=== PATIENT | female | born 1980 | race Caucasian/White ===

== ENCOUNTER 2017-07-15 07:22 | Outpatient (CLI) | payer OTHER ==
[~2017-07-15 07:22] MED LIST: FERRIC CARBOXYMALTOSE 750 MG in NORMAL SALINE 250 ML IV PRN; NORMAL SALINE 250 ML IV PRN
[2017-07-15 08:18] VITALS: BP 121/83
== END 2017-07-15 08:55 | disposition home or self-care (01) ==
LOC: II 07:22 → 5TH 07:25 → II 08:55
PROVIDERS: ATTEND Internal Medicine
PROC: 3E033GC Introduction of Other Therapeutic Substance into Peripheral Vein, Percutaneous Approach (ICD-10-PCS; principal; 2017-07-15)
DX: D50.8 Other iron deficiency anemias (principal); K90.9 Intestinal malabsorption, unspecified
CPT/HCPCS: 96365; J7050; J1439

== ENCOUNTER 2017-07-29 07:50 | Outpatient (CLI) | payer OTHER ==
[2017-07-29 09:02] VITALS: BP 111/52
== END 2017-07-29 09:15 | disposition home or self-care (01) ==
LOC: II 07:50 → 5TH 07:52 → II 09:15
PROVIDERS: ATTEND Internal Medicine
PROC: 3E033GC Introduction of Other Therapeutic Substance into Peripheral Vein, Percutaneous Approach (ICD-10-PCS; principal; 2017-07-29)
DX: D50.8 Other iron deficiency anemias (principal); K90.9 Intestinal malabsorption, unspecified
CPT/HCPCS: 96365; J7050; J1439

== ENCOUNTER 2017-08-05 10:07 | Day surgery (SDC) | payer BC, OTHER ==
[2017-07-28 11:51] LABS: HEMATOCRIT 32.6 % (36.0-47.0); HEMOGLOBIN 10.4 g/dL (12.0-15.5); MEAN CORPUSCULAR HEMOGLOBIN 23.4 pg (27.0-33.4); MEAN CORPUSCULAR HGB CONC 31.8 g/dL (32.0-36.0); MEAN CORPUSCULAR VOLUME 74 fl (80-97); PLATELET COUNT 221 10^3/uL (150-450); RED BLOOD COUNT 4.44 10^6/uL (3.72-5.28); RED CELL DISTRIBUTION WIDTH 32.9 % (11.5-14.0); WHITE BLOOD COUNT 5.2 10^3/uL (4.0-10.5)
[2017-07-28 11:54] LABS: APPEARANCE,URINE CLEAR; BILIRUBIN,URINE NEGATIVE (NEGATIVE); COLOR,URINE YELLOW; GLUCOSE, URINE NEGATIVE (NEGATIVE); KETONES,URINE NEGATIVE (NEGATIVE); LEUKOCYTE ESTERASE,URINE NEGATIVE (NEGATIVE); NITRITE,URINE NEGATIVE (NEGATIVE); PROTEIN,URINE NEGATIVE (NEGATIVE); URINE SPECIFIC GRAVITY 1.024
[2017-07-28 12:17] LABS: ALANINE AMINOTRANSFERASE 44 U/L (9-52); ALBUMIN 4.2 g/dL (3.5-5.0); ALKALINE PHOSPHATASE 69 U/L (38-126); ANION GAP 11 (5-19); ASPARTATE AMINO TRANSFERASE 26 U/L (14-36); BILIRUBIN,DIRECT 0.1 mg/dL (0.0-0.4); BILIRUBIN,TOTAL 0.3 mg/dL (0.2-1.3); BLOOD UREA NITROGEN 13 mg/dL (7-20); CALCIUM 9.1 mg/dL (8.4-10.2); CARBON DIOXIDE 24 mmol/L (22-30); CHLORIDE 104 mmol/L (98-107); GLUCOSE 84 mg/dL (75-110); POTASSIUM 4.3 mmol/L (3.6-5.0); SODIUM 139.4 mmol/L (137-145); TOTAL PROTEIN 6.8 g/dL (6.3-8.2)
--- NOTE | 2017-07-28 13:06 | RADIOLOGY REPORT (SQ) ---
EXAM DESCRIPTION: CHEST PA/LATERAL COMPLETED DATE/TIME: 07/28/2017 12:50 pm REASON FOR STUDY: PRE OP COMPARISON: None. EXAM PARAMETERS: NUMBER OF VIEWS: two views TECHNIQUE: Digital Frontal and Lateral radiographic views of the chest acquired. RADIATION DOSE: NA LIMITATIONS: none FINDINGS: LUNGS AND PLEURA: No opacities, masses or pneumothorax. No pleural effusion. MEDIASTINUM AND HILAR STRUCTURES: No masses or contour abnormalities. HEART AND VASCULAR STRUCTURES: Heart normal size. No evidence for failure. BONES: No acute findings. HARDWARE: None in the chest. OTHER: No other significant finding. IMPRESSION: NO SIGNIFICANT RADIOGRAPHIC FINDING IN THE CHEST. TECHNICAL DOCUMENTATION: JOB ID: [id number] [employer]- All Rights Reserved
--- NOTE | 2017-07-28 13:53 | EKG REPORT ---
SEVERITY:- BORDERLINE ECG - SINUS RHYTHM BORDERLINE T ABNORMALITIES, ANTERIOR LEADS : Confirmed by: Yue Raza 28-Jul-2017 13:52:29
[~2017-08-05 10:07] MED LIST changes: +BUPIVACAINE HCL 0.5%-EPI 1:200000 INJ/PF 30 ML VIAL ONE; +CEFAZOLIN 1 GM/D5W RTU 1 GM/50 ML RTUPB IV PRN; -FERRIC CARBOXYMALTOSE 750 MG in NORMAL SALINE 250 ML IV PRN; +LACTATED RINGERS 1000 ML IV PRN; +LIDOCAINE 0.5% INJ-PF (5 MG/ML) 50 ML SDV SUBCUT PRN; -NORMAL SALINE 250 ML IV PRN
[2017-08-05] MEDS ORDERED: ALBUTEROL SULFATE 0.083% NEB 2.5 MG/3 ML AMPUL NEB ONE (10:50)
[2017-08-05] MEDS ORDERED: SCOPOLAMINE HYDROBROMIDE 1.5 MG PATCH.TD72 ONE (11:46)
[2017-08-05] MEDS ORDERED: MIDAZOLAM 2 MG/2 ML INJ ONE ×2 (11:46→12:22)
[2017-08-05] MEDS ORDERED: RINGERS SOLUTION,LACTATED 1,000 ML IV PRN (11:47)
[2017-08-05] MEDS ORDERED: METOCLOPRAMIDE HCL INJ/PF 10 MG/2 ML SDV ONE (11:47)
[2017-08-05] MEDS ORDERED: FAMOTIDINE INJ/PF 20 MG/2 ML SDV IV ONE (11:47)
[2017-08-05] MEDS ORDERED: DIPHENHYDRAMINE HCL 50 MG/ML VIAL ONE (11:50)
[2017-08-05] MEDS ORDERED: METOCLOPRAMIDE HCL INJ/PF 10 MG/2 ML SDV IV ONE (12:00)
[2017-08-05] MEDS ORDERED: MIDAZOLAM 2 MG/2 ML INJ IV ONE (12:00)
[2017-08-05] MEDS ORDERED: SCOPOLAMINE HYDROBROMIDE 1.5 MG PATCH.TD72 TD ONE (12:00)
[2017-08-05] MEDS ORDERED: PROPOFOL INJ 200 MG/20 ML VIAL IV ONE (12:22)
[2017-08-05] MEDS ORDERED: HYDROMORPHONE HCL INJ/PF 2 MG/ML AMPULE ONE (12:22)
[2017-08-05] MEDS ORDERED: ACETAMINOPHEN 100 ML IV ONE ×2 (12:22→19:15)
[2017-08-05] MEDS ORDERED: DEXMEDETOMIDINE INJ 80 MCG/20 ML VIAL IV ONE (12:34)
[2017-08-05] MEDS ORDERED: ESTROGENS,CONJUGATED 0.625 MG/1 GM 30 GM TUBE PV PRN ×2 (13:23→16:23)
[2017-08-05] MEDS ORDERED: PROMETHAZINE HCL INJ 25 MG/1 ML VIAL IV PRN ×2 (13:33)
[2017-08-05] MEDS ORDERED: DIPHENHYDRAMINE HCL 50 MG/ML VIAL IV PRN (13:33)
[2017-08-05] MEDS ORDERED: MEPERIDINE HCL/PF INJ 25 MG/1 ML DISP.SYRIN IV PRN (13:33)
[2017-08-05] MEDS ORDERED: ONDANSETRON HCL INJ/PF 4 MG/2 ML SDV IV PRN (13:33)
[2017-08-05] MEDS ORDERED: FENTANYL CITRATE INJ/PF 100 MCG/2 ML AMPUL IV PRN ×3 (13:33)
[2017-08-05] MEDS: BUPIVACAINE HCL 0.25% /EPINEPHRINE INJ/PF 30 ML SDV ONE ×2 (13:37→14:14)
[2017-08-05] MEDS ORDERED: BUPIVACAINE HCL 0.5%-EPI 1:200000 INJ/PF 30 ML VIAL ONE (14:01)
[2017-08-05] MEDS ORDERED: FENTANYL CITRATE INJ/PF 100 MCG/2 ML AMPUL ONE ×2 (14:56→16:06)
[2017-08-05] MEDS ORDERED: PROMETHAZINE HCL INJ 25 MG/1 ML VIAL ONE ×2 (16:14→18:39)
[2017-08-05] MEDS ORDERED: MORPHINE SULFATE 10 MG/ML INJ IV PRN (16:29)
[2017-08-05] MEDS ORDERED: SUCCINYLCHOLINE CHLORIDE INJ 200 MG/10 ML VIAL ONE (18:17)
[2017-08-05] MEDS ORDERED: LIDOCAINE 2% INJ-PF (20 MG/ML) 2 ML AMPUL ONE (18:17)
[2017-08-05] MEDS ORDERED: DEXAMETHASONE SOD PHOSPHATE INJ 4 MG/1 ML VIAL ONE (18:17)
[2017-08-05] MEDS ORDERED: ROCURONIUM BROMIDE INJ 50 MG/5 ML VIAL IV ONE (18:17)
[2017-08-05] MEDS ORDERED: NEOSTIGMINE METHYLSULFATE 10 MG/10 ML VIAL ONE (18:17)
[2017-08-05] MEDS ORDERED: GLYCOPYRROLATE INJ 0.4 MG/2 ML VIAL ONE (18:17)
[2017-08-05] MEDS ORDERED: ONDANSETRON HCL INJ/PF 4 MG/2 ML SDV ONE (18:17)
[2017-08-05] MEDS: OXYCODONE-ACETAMINOPHEN 5-325 MG TABLET PO PRN (18:47)
[2017-08-05] MEDS: DOCUSATE SODIUM 100 MG CAPSULE PO SCH (19:58)
[2017-08-05] MEDS: HYDROMORPHONE HCL INJ/PF 2 MG/ML AMPULE IV PRN (21:03)
[2017-08-05] MEDS: KETOROLAC TROMETHAMINE INJ/PF 30 MG/1 ML SDV IV SCH (22:30)
[2017-08-06] MEDS: HYDROMORPHONE HCL INJ/PF 2 MG/ML AMPULE IV PRN ×5 (00:03→20:40)
[2017-08-06] MEDS: DIPHENHYDRAMINE HCL 50 MG/ML VIAL IV PRN ×3 (01:17→20:41)
[2017-08-06] MEDS: PROMETHAZINE HCL INJ 25 MG/1 ML VIAL IV PRN (03:37)
[2017-08-06] MEDS: OXYCODONE-ACETAMINOPHEN 5-325 MG TABLET PO PRN ×3 (04:49→18:39)
[2017-08-06] MEDS: KETOROLAC TROMETHAMINE INJ/PF 30 MG/1 ML SDV IV SCH ×2 (06:03→13:20)
[2017-08-06 06:51] LABS: ABSOLUTE EOSINOPHILS # (AUTO) 0.1 10^3/uL (0.0-0.6); ABSOLUTE MONOCYTES (AUTO) 0.7 10^3/uL (0.1-1.4); ABSOLUTE NEUT (AUTO) 3.8 10^3/uL (1.7-8.2); BASOPHILS % (AUTO) 0.5 % (0-2); HEMOGLOBIN 9.1 g/dL (12.0-15.5); LYMPHOCYTES % (AUTO) 29.9 % (13-45); MEAN CORPUSCULAR HEMOGLOBIN 24.9 pg (27.0-33.4); MEAN CORPUSCULAR HGB CONC 32.5 g/dL (32.0-36.0); MEAN CORPUSCULAR VOLUME 77 fl (80-97); MONOCYTES % (AUTO) 10.5 % (3-13); PLATELET COUNT 223 10^3/uL (150-450); RED BLOOD COUNT 3.65 10^6/uL (3.72-5.28); RED CELL DISTRIBUTION WIDTH 34.7 % (11.5-14.0); SEGMENTED NEUTROPHILS % (AUTO) 58.1 % (42-78); TOTAL CELLS COUNTED % (AUTO) 100 %; WHITE BLOOD COUNT 6.6 10^3/uL (4.0-10.5)
[2017-08-06 07:11] LABS: ANISOCYTOSIS 4+; PLATELET COMMENT ADEQUATE
[2017-08-06] MEDS: DOCUSATE SODIUM 100 MG CAPSULE PO SCH ×2 (10:26→16:49)
--- NOTE | 2017-08-06 10:48 | PDOC PROGRESS REPORT ---
Subjective Progress Note for:: 08/06/17 Subjective:: post operative pain. doing well otherwise. no flatus as yet. Has not yet voided since obando removal this AM at 0530. Reason For Visit: N92.6 IRREGULAR MENSTRUATION, UNSPECIFIED Physical Exam - Physical Exam Vital Signs: Temp Pulse Resp BP Pulse Ox 98.0 F 84 15 104/72 96 08/06/17 07:30 08/06/17 07:30 08/06/17 07:30 08/06/17 07:30 08/06/17 07:30 Intake & Output 08/05/17 08/06/17 08/07/17 06:59 06:59 06:59 Intake Total 3400 Output Total 4950 Balance -1550 Weight 87.54 kg General appearance: PRESENT: no acute distress, cooperative Result Laboratory Results: 08/06/17 06:45 07/28/17 11:02 08/05/17 08/06/17 08/06/17 11:11 05:07 06:45 WBC Cancelled 6.6 RBC Cancelled 3.65 L Hgb Cancelled 9.1 L Hct Cancelled 28.0 L MCV Cancelled 77 L MCH Cancelled 24.9 L MCHC Cancelled 32.5 RDW Cancelled 34.7 H Plt Count Cancelled 223 Seg Neutrophils % Cancelled 58.1 Lymphocytes % Cancelled 29.9 Monocytes % Cancelled 10.5 Eosinophils % Cancelled 1.0 Basophils % Cancelled 0.5 Absolute Neutrophils Cancelled 3.8 Absolute Lymphocytes Cancelled 2.0 Absolute Monocytes Cancelled 0.7 Absolute Eosinophils Cancelled 0.1 Absolute Basophils Cancelled 0.0 Serum HCG, Qual NEGATIVE Impressions: Chest X-Ray 07/28/17 11:24 IMPRESSION: NO SIGNIFICANT RADIOGRAPHIC FINDING IN THE CHEST. Assessment & Plan - Diagnosis (1) Anemia Qualifiers: Iron deficiency anemia type: chronic blood loss Is this a current diagnosis for this admission?: Yes (2) Cystocele Qualifiers: Cystocele location: midline Qualified Code(s): N81.11 - Cystocele, midline Is this a current diagnosis for this admission?: Yes (3) Rectocele Is this a current diagnosis for this admission?: Yes (4) Uterine prolapse Is this a current diagnosis for this admission?: Yes - Plan Summary Plan Summary: continue to manage expectantly. Start estrogen cream use daily. If no void in 1 hour will reinsert obando for further bladder rest.
[2017-08-06] MEDS: RINGERS SOLUTION,LACTATED 1,000 ML IV PRN ×2 (11:17→20:41)
[2017-08-06] MEDS ORDERED: ESTROGENS,CONJUGATED 0.625 MG/1 GM 30 GM TUBE VG ONE (13:30)
[2017-08-06] MEDS ORDERED: POLYETHYLENE GLYCOL 3350 POWDER 17 GM/1 PACKET PO ONE (15:00)
[2017-08-06] MEDS ORDERED: IBUPROFEN 800 MG TABLET PO PRN (22:00)
[2017-08-07] MEDS: HYDROMORPHONE HCL INJ/PF 2 MG/ML AMPULE IV PRN ×2 (00:42→04:40)
[2017-08-07] MEDS: RINGERS SOLUTION,LACTATED 1,000 ML IV PRN (04:40)
[2017-08-07] MEDS: OXYCODONE-ACETAMINOPHEN 5-325 MG TABLET PO PRN (07:37)
[2017-08-07] MEDS: PROMETHAZINE HCL INJ 25 MG/1 ML VIAL IV PRN (07:37)
[2017-08-07] MEDS ORDERED: SUMATRIPTAN SUCCINATE 100 MG TABLET PO ONE (08:48)
[2017-08-07] MEDS ORDERED: POLYETHYLENE GLYCOL 3350 POWDER 17 GM/1 PACKET PO SCH (10:00)
[2017-08-07] MEDS: DOCUSATE SODIUM 100 MG CAPSULE PO SCH (10:12)
--- NOTE | 2017-08-07 11:04 | PDOC DISCHARGE SUMMARY ---
General - Admit/Disc Date/PCP Admission Date/Primary Care Provider: SABINO RAY MD Discharge Date: 08/07/17 - Discharge Diagnosis (1) Anemia Is this a current diagnosis for this admission?: Yes (2) Cystocele Is this a current diagnosis for this admission?: Yes (3) Rectocele Is this a current diagnosis for this admission?: Yes (4) Uterine prolapse Is this a current diagnosis for this admission?: Yes - Additional Information Home Medications: Cyclobenzaprine HCl [Flexeril 10 mg Tablet] 10 mg PO TIDP PRN 07/22/17 Escitalopram Oxalate [Lexapro] 20 mg PO DAILY 07/22/17 Eszopiclone [Lunesta] 3 mg PO DAILY 07/22/17 Trazodone HCl 50 mg PO ASDIR PRN 07/22/17 History of Present Illness History of Present Illness: RAN CARRILLO is a 36 year old female Hospital Course Hospital Course: underwent TVH w/ b/l salpingectomy, Anterior and Posterior repair, Uterosacral suspension and urethral tape placement. Post operative course unremarkable. Physical Exam - Physical Exam Vital Signs: Temp Pulse Resp BP Pulse Ox 98.8 F 103 H 16 96/68 L 97 08/07/17 08:10 08/07/17 08:10 08/07/17 08:10 08/07/17 08:10 08/07/17 04:30 Intake & Output 08/06/17 08/07/17 08/08/17 06:59 06:59 06:59 Intake Total 3400 3625 Output Total 4950 Balance -1550 3625 Weight 87.54 kg General appearance: PRESENT: no acute distress, cooperative GI/Abdominal exam: PRESENT: soft, tenderness - appropriate for post operative state Result Laboratory Results: 08/06/17 06:45 07/28/17 11:02 Impressions: Chest X-Ray 07/28/17 11:24 IMPRESSION: NO SIGNIFICANT RADIOGRAPHIC FINDING IN THE CHEST. Plan Discharge Plan: discharge home with strict precautions for no lifting greater than 10 pounds, high resen diet and laxatives to prevent straining. follow up with [facility] in 2 weeks as planned. Time Spent: Less than 30 Minutes
[2017-08-07 11:20] VITALS: BP 119/82
[2017-08-07] MEDS ORDERED: ESTROGENS,CONJUGATED 0.625 MG/1 GM 30 GM TUBE VG SCH (22:00)
--- NOTE | 2017-09-02 16:58 | OPERATIVE REPORT E ---
Operative Report NAME: RAN CARRILLO : 1980 AGE: 36Y DATE OF SURGERY: 08/05/2017 ROOM: 214 PREOPERATIVE DIAGNOSES: 1. Abnormal uterine bleeding. 2. Anemia. 3. Complete [place]. POSTOPERATIVE DIAGNOSES: 1. Abnormal uterine bleeding. 2. Anemia. 3. Complete Providencia. SURGEON: SABION RAY M.D. ASSISTANTS: 1. Dr. Mejias. 2. Maryann Herrera, [employer]ist. FINDINGS: An 8-week uterus with normal ovaries, grade 3 prolapse. COMPLICATIONS: None. ESTIMATED BLOOD LOSS: 150 mL. SPECIMENS REMOVED: Uterus, fallopian tubes, and cervix. PROCEDURES: 1. Transvaginal hysterectomy with bilateral salpingectomy. 2. Modified Jimenez culdoplasty. 3. Anterior and posterior repair. 4. Urethral Solyx tape placement. PROCEDURE IN DETAIL: The patient was taken to the operating room and prepared and draped in a normal sterile fashion in the dorsal lithotomy position in the [facility]. Brian catheter was placed to gravity. A weighted speculum was placed into the posterior vagina and [place] was placed into the anterior vagina. The cervix was then grasped with a single-toothed tenaculum and injected with approximately 20 mL of lidocaine 2% with epi in a circumferential fashion. The cervix was then scored using the 10-blade and the vaginal mucosa was dissected away sharply using Reyes's and pickups. The anterior cul-de-sac was then entered with Reyes scissors and the [place] blade was placed into the peritoneum. The same was done on the posterior cul-de-sac and the long weighted speculum replaced the weighted speculum. The uterosacral ligaments were then transected with Christiane clamps on both sides and suture ligated using 0 Vicryl. These were tagged with hemostats. Using the LigaSure, the rest of the uterus and uterine arteries were coagulated using the LigaSure up to the fundus of the uterus bilaterally until the specimen was freed. Both of the fallopian tubes were visualized and these were grasped with [place]'s. The fallopian tubes were then removed using the LigaSure without difficulty and with good hemostasis. The pedicles were reinspected and found to be well hemostatic and the specimens were passed off the field. The uterosacral ligaments were then identified and the modified Jimenez culdoplasty was performed in a normal fashion. The vaginal cuff was then closed with 0 Vicryl. The vagina was then reinspected and it was found that there was indeed additional redundant tissue. Therefore, the anterior aspect of the vagina was then injected with approximately 10 mL of lidocaine with epi in the midline and the mucosa was then scored using a 15 blade. The mucosa was then bluntly and sharply dissected from the bladder using Metzenbaum's and blunt dissection on both sides until adequate tissue was removed. Three interrupted sutures of Eth[place]ond were then placed and the redundant vaginal tissue was cut away and the defect was then closed using 4-0 Vicryl in a running, locked fashion. Posteriorly, this procedure was repeated, again once more injecting lidocaine in the midline posterior mucosa and dissecting the rectum away from the vaginal mucosa using Metzenbaum's and blunt dissection. The redundant tissue was then removed and this remaining defect was closed with 4-0 Vicryl after placement of 3 interrupted sutures of Ethibond. A colpotomy was then performed in a normal fashion removing a inderjit-shaped wedge of perineal tissue and placing 2 support sutures of 0 Ethibond. The Solyx was then placed in a normal fashion after scoring approximately 2 cm below the urethra. The tissue was dissected away until the obturator bones could be felt on either side of the urethra and the Solyx was placed in a typical fashion using the Solyx applicator. This concluded the procedure. The patient tolerated the procedure well. Sponge, lap, and needle counts were correct x2, and the patient was packed with Kerlix saturated with Premarin cream before she went out of the OR. DICTATING PHYSICIAN: SABINO RAY M.D. [id number] PHY#: [id number] ID: [id number] JOB#: [id number] ACCT: [id number] cc:SABINO RAY M.D. >
== END 2017-08-07 12:47 | disposition home or self-care (01) ==
LOC: OROUT 10:07 → 2S 15:08 → OROUT 08-07 12:47
PROVIDERS: ATTEND Obstetrics & Gynecology
PROC: 0JQC0ZZ Repair Pelvic Region Subcutaneous Tissue and Fascia, Open Approach (ICD-10-PCS; 2017-08-05)
PROC: 0UT97ZZ Resection of Uterus, Via Natural or Artificial Opening (ICD-10-PCS; 2017-08-05)
PROC: 0UT77ZZ Resection of Bilateral Fallopian Tubes, Via Natural or Artificial Opening (ICD-10-PCS; 2017-08-05)
PROC: 0TUD4JZ Supplement Urethra with Synthetic Substitute, Percutaneous Endoscopic Approach (ICD-10-PCS; 2017-08-05)
PROC: 0JQC0ZZ Repair Pelvic Region Subcutaneous Tissue and Fascia, Open Approach (ICD-10-PCS; principal; 2017-08-05 12:15)
DX: N81.3 Complete uterovaginal prolapse (principal); N93.9 Abnormal uterine and vaginal bleeding, unspecified; N92.6 Irregular menstruation, unspecified; R10.2 Pelvic and perineal pain; N87.0 Mild cervical dysplasia; D64.9 Anemia, unspecified; N39.3 Stress incontinence (female) (male); E11.9 Type 2 diabetes mellitus without complications; J45.909 Unspecified asthma, uncomplicated; Z79.899 Other long term (current) drug therapy
CPT/HCPCS: 93005; 86900; 86901; 36415 ×3; 86850; 84703; 85025; 85027; 80053; 81001; 88307 ×2; 71020; 93010; 57260; 58262; 57288; C1771; J2250; J3490 ×9; J0690; J1100; J1200 ×2; J3010; J1885 ×2; J2270; J1170 ×3; J2550 ×3; J0330; J2405; J7120 ×2; J2704; S0028; J0131; 944; J2765

== ENCOUNTER 2017-08-09 04:21 | Inpatient (IN) | payer OTHER ==
[2017-08-09] MEDS ORDERED: NORMAL SALINE 1000 ML 1,000 ML IV ONE (04:26)
--- NOTE | 2017-08-09 04:38 | ER Document Report ---
ED General <CHILO MCGOVERN - Last Filed: 08/09/17 05:58> - General TRAVEL OUTSIDE OF THE [place] IN LAST 30 DAYS: No <NOEL HERNANDEZ - Last Filed: 08/09/17 07:25> - General Chief Complaint: Post Surgical Pain Stated Complaint: ABDOMINAL PAIN Time Seen by Provider: 08/09/17 04:34 Notes: Patient is a 36-year-old female that comes emergency department by EMS for chief complaint of postop pain, she states that she had a total hysterectomy ( transvaginal) and ureterosacral suspension performed on 08/05/[address] Daniel/Dr. Mejias ORTHODONTIC ASSISTANT. She states that she was doing well until she started having urinary retention, she had a bladder scan at noon yesterday, they performed a catheterization at that time and she had 1000 mL's urine output , states that since then she only has had a tiny dribble of urine and none since. She reports increasing pain in her mid to lower abdomen. She denies vomiting, fever, discolored drainage from her wounds. (NOEL HERNANDEZ) - Related Data Allergies/Adverse Reactions: metoclopramide [From Reglan] Adverse Reaction (Verified 08/05/17 12:07) environmental Allergy (Severe, Uncoded 07/22/17 15:42) sinuses Past Medical History - General Information source: Patient - Social History Smoking Status: Never Smoker Frequency of alcohol use: None Drug Abuse: None Lives with: Family Family History: Reviewed & Not Pertinent Pulmonary Medical History: Reports: Hx Asthma, Hx Bronchitis GI Medical History: Reports: Hx Ulcer Psychiatric Medical History: Reports: Hx Depression Past Surgical History: Reports: Hx Gastric Bypass Surgery, Hx Tubal Ligation - Immunizations Hx Diphtheria, Pertussis, Tetanus Vaccination: Yes <NOEL HERNANDEZ - Last Filed: 08/09/17 07:25> Review of Systems - Review of Systems Constitutional: No symptoms reported EENT: No symptoms reported Cardiovascular: No symptoms reported Respiratory: No symptoms reported Gastrointestinal: See HPI Genitourinary: See HPI Female Genitourinary: See HPI Musculoskeletal: No symptoms reported Skin: No symptoms reported Hematologic/Lymphatic: No symptoms reported Neurological/Psychological: No symptoms reported <NOEL HERNANDEZ - Last Filed: 08/09/17 07:25> Physical Exam - Vital signs Interpretation: Normal - General General appearance: Anxious In distress: Moderate - HEENT Head: Normocephalic, Atraumatic Eyes: Normal Pupils: PERRL - Respiratory Respiratory status: No respiratory distress. No: Labored Breath sounds: Normal. No: Decreased air movement, Wheezing - Cardiovascular Rhythm: Regular, Tachycardia Heart sounds: Normal auscultation, S1 appreciated, S2 appreciated Murmur: No - Abdominal Inspection: Normal Distension: No distension Bowel sounds: Normal Tenderness: Tender - General lower abdominal tenderness, abdomen appears distended Organomegaly: No organomegaly - Extremities General upper extremity: Normal inspection. No: Edema General lower extremity: Normal inspection. No: Edema - Neurological Neuro grossly intact: Yes Cognition: Normal Orientation: AAOx4 [place] Coma Scale Eye Opening: Spontaneous Jessica Coma Scale Verbal: Oriented [place] Coma Scale Motor: Obeys Commands [place] Coma Scale Total: 15 Speech: Normal Motor strength normal: LUE, RUE, LLE, RLE Sensory: Normal - Psychological Associated symptoms: Agitated, Anxious - Skin Skin Temperature: Warm Skin Moisture: Dry Skin Color: Normal <NOEL HERNANDEZ - Last Filed: 08/09/17 07:25> - Vital signs Vitals: Resp BP Pulse Ox 18 103/81 93 08/09/17 04:26 08/09/17 04:26 08/09/17 04:26 Course <CHILO MCGOVERN - Last Filed: 08/09/17 05:58> - Laboratory Result Diagrams: 08/09/17 06:00 08/09/17 06:00 <NOEL HERNANDEZ - Last Filed: 08/09/17 07:25> - Re-evaluation Re-evalutation: 08/09/17 05:56 I immediately saw the patient when she arrived in conjunction with the physician 's leasing assistant, Noel Hernandez. Patient came in diaphoretic and was hypotensive and Teresita. She arrived here her blood pressure had normalized. Her blood pressure baseline is systolically in the 90s. She complains of ear pain with the recent history of transvaginal hysterectomy followed by salpingectomy and anterior posterior repair and uterosacral suspension and urethral tape placement. She was discharged on August 07. 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 She said since then she has been unable to urinate well on her own. She went to the office yesterday and they catheter to relieve some urinary obstruction. Since then she has only passed a few drops of urine and the pain is gotten worse to the point where she is miserable and therefore came to the ER. I did do a quick portable chest x-ray which showed no evidence of free air under the diaphragm. I did do a FAST exam which showed no free fluid in the abdomen but it did show a distended bladder and therefore Brian catheter was placed. This did relieve a lot of her pain. She is a difficult IV stick and therefore place peripheral IV in the left antecubital area under ultrasound guidance. Lab work is pending. Patient's vital signs currently or some tachycardia in the low 100s with a blood pressure of 103/81. Once lab results come back we will contact the cottage supervisor on-call to discuss further treatment for the patient. (CHILO MCGOVERN) Patient tachycardic, appears very uncomfortable, has lower abdominal distention , ultrasound consistent with distended bladder. Blood pressure [address] Mcgovern came to bedside, performed FAST abdominal exam with no obvious acute abnormalities. Chest single view performed, no free air noted under the diaphragm immediately. Brian catheter will be placed to drain the bladder. Workup pending. Workup delayed due to difficulty obtaining labs, CBC is still pending, chemistry generally unremarkable with mild hypokalemia, will check magnesium. Urinalysis unremarkable. Patient given fentanyl for pain. Patient initially had relief and decrease in tachycardia after bladder was drained, however tachycardia returned, temperature was rechecked, she was now found to be febrile. Given ketorolac for fever, given 0.5 mg Dilaudid, she declines nausea medication. Broad-spectrum coverage with Invanz will be given. Will discuss with ORTHODONTIC ASSISTANT for potential admission for urinary retention and postop fever. Discussed with Dr. Mcgovern. CBC finally resulted, no leukocytosis, hemoglobin of 9.1. Chest x-ray read by radiologist as possible pneumonia versus CHF. No hypoxia. Patient states she has had some chest congestion. Pneumonia does not appear overtly to be consolidation per my read and Dr. Mcgovern. 08/09/17 07:[address] Perdue, ORTHODONTIC ASSISTANT on-call, he will admit to second floor. (NOEL HERNANDEZ) - Vital Signs Vital signs: Temp Pulse Resp BP Pulse Ox 101.4 F H 20 103/81 97 08/09/17 07:01 08/09/17 07:00 08/09/17 04:26 08/09/17 07:00 - Laboratory Laboratory results interpreted by me: 08/09/17 08/09/17 08/09/17 04:42 06:00 06:00 RBC 3.54 L Hgb 9.1 L Hct 28.4 L MCH 25.7 L RDW 34.7 H APTT 37.7 H Potassium AST ALT Total Protein Urine Urobilinogen 4.0 H 08/09/17 06:00 RBC Hgb Hct MCH RDW APTT Potassium 3.4 L AST 38 H ALT 62 H Total Protein 6.1 L Urine Urobilinogen Procedures - Additional Procedures IV insertion Additional Procedures: IV insertion <CHILO MCGOVERN - Last Filed: 08/09/17 05:58> <NOEL HERNANDEZ - Last Filed: 08/09/17 07:25> - Additional Procedures IV insertion Notes: 08/09/17 05:59 I placed a peripheral IV under ultrasound guidance. I did attempt a right antecubital fossa first. I did get a flash but IV was unable to thread the vein appropriately. I then placed an IV in the left antecubital fossa. He had a good flash. Good blood withdrawal. IV flushes well without complications. Blood withdrawal was dark and nonpulsatile. Area was sterilized with alcohol prior to IV cannulation. (CHILO MCGOVERN) Discharge <CHILO MCGOVERN - Last Filed: 08/09/17 05:58> - Discharge Admitting Provider: [facility] Admitted: Labor and Delivery <NOEL HERNANDEZ - Last Filed: 08/09/17 07:25> - Discharge Clinical Impression: Post-op pain, Urinary retention Fever Qualifiers: Fever type: unspecified Qualified Code(s): R50.9 - Fever, unspecified Condition: Stable Disposition: ADMITTED INPATIENT
--- NOTE | 2017-08-09 04:56 | RADIOLOGY REPORT (SQ) ---
EXAM DESCRIPTION: CHEST SINGLE VIEW CLINICAL HISTORY: 36 years, Female, rule out free air below diaphragm COMPARISON: None. LIMITATIONS: None. FINDINGS: No significant intraperitoneal free air identified on this AP portable upright view, as queried. Moderate lung volume. Moderate patchy airspace opacities predominantly in bilateral upper lung miranda. Mild enlargement of the cardiac silhouette. Intact bony thorax. Right upper abdominal clips. IMPRESSION: Multifocal pneumonia. Differential diagnosis includes CHF. 2011 [employer]- All Rights Reserved
[2017-08-09 05:00] LABS: APPEARANCE,URINE CLEAR; BILIRUBIN,URINE NEGATIVE (NEGATIVE); COLOR,URINE YELLOW; GLUCOSE, URINE NEGATIVE (NEGATIVE); KETONES,URINE NEGATIVE (NEGATIVE); LEUKOCYTE ESTERASE,URINE NEGATIVE (NEGATIVE); NITRITE,URINE NEGATIVE (NEGATIVE); PROTEIN,URINE NEGATIVE (NEGATIVE); URINE SPECIFIC GRAVITY 1.021
[2017-08-09] MEDS ORDERED: FENTANYL CITRATE INJ/PF 100 MCG/2 ML AMPUL IV ONE (05:59)
[2017-08-09] MEDS ORDERED: ONDANSETRON HCL INJ/PF 4 MG/2 ML SDV IV ONE (06:00)
[2017-08-09 06:29] LABS: ABSOLUTE EOSINOPHILS # (AUTO) 0.1 10^3/uL (0.0-0.6); ABSOLUTE LYMPHOCYTES (AUTO) 0.8 10^3/uL (0.5-4.7); ABSOLUTE MONOCYTES (AUTO) 0.3 10^3/uL (0.1-1.4); ABSOLUTE NEUT (AUTO) 3.9 10^3/uL (1.7-8.2); BASOPHILS % (AUTO) 0.5 % (0-2); EOSINOPHILS % (AUTO) 1.7 % (0-6); HEMATOCRIT 28.4 % (36.0-47.0); HEMOGLOBIN 9.1 g/dL (12.0-15.5); LYMPHOCYTES % (AUTO) 15.7 % (13-45); MEAN CORPUSCULAR HEMOGLOBIN 25.7 pg (27.0-33.4); MEAN CORPUSCULAR HGB CONC 32.1 g/dL (32.0-36.0); MEAN CORPUSCULAR VOLUME 80 fl (80-97); MONOCYTES % (AUTO) 6.2 % (3-13); PLATELET COUNT 196 10^3/uL (150-450); RED BLOOD COUNT 3.54 10^6/uL (3.72-5.28); RED CELL DISTRIBUTION WIDTH 34.7 % (11.5-14.0); SEGMENTED NEUTROPHILS % (AUTO) 75.9 % (42-78); TOTAL CELLS COUNTED % (AUTO) 100 %; WHITE BLOOD COUNT 5.1 10^3/uL (4.0-10.5)
[2017-08-09 06:30] LABS: ALANINE AMINOTRANSFERASE 62 U/L (9-52); ALBUMIN 3.5 g/dL (3.5-5.0); ALKALINE PHOSPHATASE 82 U/L (38-126); ANION GAP 11 (5-19); ASPARTATE AMINO TRANSFERASE 38 U/L (14-36); BILIRUBIN,DIRECT 0.3 mg/dL (0.0-0.4); BILIRUBIN,TOTAL 0.5 mg/dL (0.2-1.3); BLOOD UREA NITROGEN 13 mg/dL (7-20); CALCIUM 8.6 mg/dL (8.4-10.2); CARBON DIOXIDE 24 mmol/L (22-30); CHLORIDE 103 mmol/L (98-107); GLUCOSE 94 mg/dL (75-110); POTASSIUM 3.4 mmol/L (3.6-5.0); SODIUM 138.1 mmol/L (137-145); TOTAL PROTEIN 6.1 g/dL (6.3-8.2)
[2017-08-09 06:36] LABS: INTERNATIONAL RATION (INR) 0.97; PROTHROMBIN TIME 13.6 SEC (11.4-15.4)
[2017-08-09 06:37] LABS: PARTIAL THROMBOPLASTIN TIME 37.7 SEC (23.5-35.8)
[2017-08-09] MEDS ORDERED: KETOROLAC TROMETHAMINE INJ/PF 30 MG/1 ML SDV IV ONE (07:00)
[2017-08-09] MEDS ORDERED: HYDROMORPHONE HCL INJ/PF 2 MG/ML AMPULE IV ONE (07:00)
[2017-08-09] MEDS ORDERED: ERTAPENEM SODIUM INJ 1 GM VIAL IV ONE (07:01)
[2017-08-09 07:04] LABS: ANISOCYTOSIS 3+; HYPOCHROMASIA 1+; OVALOCYTES SLIGHT; PLATELET COMMENT ADEQUATE; POIKILOCYTOSIS SLIGHT; POLYCHROMASIA SLIGHT; SCHISTOCYTES SLIGHT
[2017-08-09] MEDS ORDERED: HYDROMORPHONE HCL INJ/PF 2 MG/ML AMPULE ONE (08:53)
[2017-08-09] MEDS ORDERED: HYDROMORPHONE HCL INJ/PF 2 MG/ML AMPULE INJ PRN (08:55)
[2017-08-09] MEDS: RINGERS SOLUTION,LACTATED 1,000 ML IV PRN ×2 (09:48→21:54)
[2017-08-09] MEDS: OXYCODONE-ACETAMINOPHEN 5-325 MG TABLET PO PRN ×2 (09:48→17:57)
[2017-08-09] MEDS ORDERED: ERTAPENEM SODIUM 1 GM in NORMAL SALINE 50 ML IV SCH (10:00)
[2017-08-09] MEDS: ALBUTEROL SULFATE HFA (90 MCG/PUFF) 200 PUFF/8.5 GM MDI IH PRN (11:17)
[2017-08-09] MEDS: HYOSCYAMINE SULFATE 0.125 MG TABLET PO SCH ×3 (11:54→23:50)
[2017-08-09] MEDS: HYDROMORPHONE HCL INJ/PF 2 MG/ML AMPULE INJ PRN ×3 (12:25→20:03)
--- NOTE | 2017-08-09 14:08 | RADIOLOGY REPORT (SQ) ---
EXAM DESCRIPTION: CTA CHEST COMPLETED DATE/TIME: 08/09/2017 1:50 pm REASON FOR STUDY: PE COMPARISON: Chest x-ray dated 08/09/2017. TECHNIQUE: CT scan of the chest performed using helical scanning technique with dynamic intravenous contrast injection. Images reviewed with lung, soft tissue and bone windows. Reconstructed coronal and sagittal MPR images reviewed. Additional 3 dimensional post-processing performed to develop Maximal Intensity Projection images (WA P). All images stored on PACS. All CT scanners at this facility use dose modulation, iterative reconstruction, and/or weight based d osing when appropriate to reduce radiation dose to as low as reasonably achievable (ALARA). [facility]: Dose Right [facility]: CareDose [facility]: Dose Right [facility]: Teradose 4D [facility]: [employer] CONTRAST TYPE AND DOSE: contrast/concentration: Isovue mg/ml; Total Contrast Delivered: 77.0 ml; To talia Saline Delivered: 80.0 ml Contrast bolus adequate for pulmonary arteries and aorta. RENAL FUNCTION: BUN 13 creatinine 0.54. RADIATION DOSE: CT Rad equipment meets quality standard of care and radiation dose reduction techniq ues were employed. CTDIvol: 16.5 - 24.3 mGy. DLP: 2936 mGy-cm. . LIMITATIONS: None. FINDINGS: LUNGS AND PLEURA: Patchy airspace disease scattered throughout both lungs. No pleural eff usion. No pneumothorax. AORTA AND GREAT VESSELS: No aneurysm. Contrast bolus not optimized for the aorta. HEART: No pericardial effusion. No significant coronary artery calcifications. PULMONARY ARTERIES: No emboli visualized in the main pulmonary arteries or the segmental branches. HILAR AND MEDIASTINAL STRUCTURES: No identified masses or abnormal nodes. HARDWARE: None in the chest. UPPER ABDOMEN: No significant findings. Limited exam. THYROID AND OTHER SOFT TISSUES: No masses. No adenopathy. BONES: No acute or significant finding. 3D MIPS: Confirm above findings. OTHER: No other significant finding. IMPRESSION: 1. NORMAL CTA OF THE CHEST. NO PULMONARY EMBOLI. 2. PATCHY AIRSPACE DISEASE SCATTERED THROUGHOUT BOTH LUNGS, MOST LIKELY REPRESENTING MULTIFOCAL PNEUM ONIA. COMMENT: Quality ID # [id number]: Final reports with documentation of one or more dose reduction techniques (e.g., Automated exposure control, adjustment of the mA and/or kV according to patient size, use of iterative reconstruction technique) TECHNICAL DOCUMENTATION: JOB ID: [id number]- All Rights Reserved
--- NOTE | 2017-08-09 14:12 | RADIOLOGY REPORT (SQ) ---
EXAM DESCRIPTION: CT ABD/PELVIS WITH IV ONLY COMPLETED DATE/TIME: 08/09/2017 1:50 pm REASON FOR STUDY: PE COMPARISON: None. TECHNIQUE: CT scan of the abdomen and pelvis performed using helical scanning technique with dynamic intravenous contrast injection. No oral contrast. Images reviewed with lung, soft tissue, and bone windows. Reconstructed coronal and sagittal MPR images reviewed. Delayed images for evaluation of the urinary system also acquired. All images stored on PACS. All CT scanners at this facility use dose modulation, iterative reconstruction, and/or weight based d osing when appropriate to reduce radiation dose to as low as reasonably achievable (ALARA). [facility]: Dose Right [facility]: CareDose [facility]: Dose Right [facility]: Teradose 4D [facility]: [employer] CONTRAST TYPE AND DOSE: 77 mL Isovue 370- low osmolar. RENAL FUNCTION: BUN 13 creatinine 0.54. RADIATION DOSE: . LIMITATIONS: None. FINDINGS: LOWER CHEST: See separate report of the CT of the chest. LIVER: Normal size. No masses. No dilated ducts. SPLEEN: Normal size. No focal lesions. PANCREAS: No masses. No significant calcifications. No adjacent inflammation or peripancreatic fluid collections. Pancreatic duct not dilated. GALLBLADDER: Surgically absent. ADRENAL GLANDS: No significant masses or asymmetry. RIGHT KIDNEY AND URETER: No solid masses. No significant calcifications. No hydronephrosis or hyd roureter. LEFT KIDNEY AND URETER: No solid masses. No significant calcifications. No hydronephrosis or hydr oureter. AORTA AND VESSELS: No aneurysm. No dissection. Renal arteries, SMA, celiac without stenosis. RETROPERITONEUM: No retroperitoneal adenopathy, hemorrhage or masses. BOWEL AND PERITONEAL CAVITY: Previous gastric bypass. No masses or inflammatory changes. No free flu id or peritoneal masses. APPENDIX: Surgically absent. PELVIS: 3 cm right ovarian cyst. No free fluid. Catheter in the bladder. ABDOMINAL WALL: No masses. No hernias. BONES: No significant or acute findings. OTHER: No other significant finding. IMPRESSION: SURGICAL CHANGES. 3 CM RIGHT OVARIAN CYST. NO SIGNIFICANT OR ACUTE FINDING IN THE ABDO MEN OR PELVIS ON CT SCAN WITH IV CONTRAST. TECHNICAL DOCUMENTATION: JOB ID: [id number] Quality ID # [id number]: Final reports with documentation of one or more dose reduction techniques (e.g., Au tomated exposure control, adjustment of the mA and/or kV according to patient size, use of iterative reconstruction technique) 2010 [employer]- All Rights Reserved
[2017-08-09 14:17] LABS: A TYPE INFLUENZA AG NEGATIVE (NEGATIVE); B INFLUENZA AG NEGATIVE (NEGATIVE)
[2017-08-09] MEDS: DIAZEPAM 2 MG TABLET PO PRN ×2 (14:23→21:54)
[2017-08-09] MEDS: DOCUSATE SODIUM 100 MG CAPSULE PO SCH (17:40)
[2017-08-09] MEDS: POLYETHYLENE GLYCOL 3350 POWDER 17 GM/1 PACKET PO SCH (17:40)
[2017-08-10] MEDS: HYDROMORPHONE HCL INJ/PF 2 MG/ML AMPULE INJ PRN ×4 (03:54→21:27)
[2017-08-10] MEDS ORDERED: ALBUTEROL SULFATE 0.083% NEB 2.5 MG/3 ML AMPUL NEB PRN (04:20)
[2017-08-10] MEDS: ALBUTEROL SULFATE HFA (90 MCG/PUFF) 200 PUFF/8.5 GM MDI IH PRN (04:20)
[2017-08-10] MEDS: ALBUTEROL SULFATE 0.083% NEB 2.5 MG/3 ML AMPUL NEB PRN ×2 (04:28→12:23)
[2017-08-10] MEDS: HYOSCYAMINE SULFATE 0.125 MG TABLET PO SCH ×4 (05:00→23:40)
[2017-08-10] MEDS: RINGERS SOLUTION,LACTATED 1,000 ML IV PRN ×2 (08:03→19:25)
[2017-08-10] MEDS: POLYETHYLENE GLYCOL 3350 POWDER 17 GM/1 PACKET PO SCH ×2 (09:49→17:59)
[2017-08-10] MEDS: DIAZEPAM 2 MG TABLET PO PRN ×2 (09:49→21:28)
[2017-08-10] MEDS: DOCUSATE SODIUM 100 MG CAPSULE PO SCH ×2 (09:49→17:59)
[2017-08-10] MEDS: ERTAPENEM SODIUM 1 GM in NORMAL SALINE 50 ML IV SCH (10:13)
[2017-08-10] MEDS ORDERED: ZOLPIDEM TARTRATE 5 MG TABLET PO ONE (23:30)
--- NOTE | 2017-08-11 00:22 | PDOC PROGRESS REPORT ---
Subjective Progress Note for:: 08/10/17 Subjective:: issues in room last night and room changed - now resolved. +VB - dark blood, + flatus, catheter in place, c/o difficulty breathing earlier today - with good response to nebs. Reason For Visit: PNEUMONIA Physical Exam - Physical Exam Vital Signs: Temp Pulse Resp BP Pulse Ox 98.6 F 68 16 117/73 100 08/10/17 07:17 08/10/17 12:23 08/10/17 12:23 08/10/17 07:17 08/10/17 07:17 Intake & Output 08/09/17 08/10/17 08/11/17 06:59 06:59 06:59 Intake Total 1300 Output Total 3700 650 Balance -2400 -650 Weight 91.444 kg General appearance: PRESENT: no acute distress, well-developed, well-nourished Head exam: PRESENT: atraumatic, normocephalic Respiratory exam: PRESENT: crackles, decreased breath sounds, prolonged expiratory phas, symmetrical, wheezes Cardiovascular exam: PRESENT: tachycardia. ABSENT: diastolic murmur, rubs, systolic murmur Pulses: PRESENT: normal dorsalis pedis pul, +2 pedal pulses bilateral Vascular exam: PRESENT: normal capillary refill GI/Abdominal exam: PRESENT: normal bowel sounds, soft. ABSENT: distended, guarding, mass, organolmegaly, rebound, tenderness Rectal exam: PRESENT: deferred Extremities exam: PRESENT: full ROM. ABSENT: calf tenderness, clubbing, pedal edema Neurological exam: PRESENT: alert, awake, oriented to person, oriented to place , oriented to time, oriented to situation, CN II-XII grossly intact. ABSENT: motor sensory deficit Psychiatric exam: PRESENT: appropriate affect, normal mood. ABSENT: homicidal ideation, suicidal ideation Skin exam: PRESENT: dry, intact, warm. ABSENT: cyanosis, rash Result Impressions: Abdomen/Pelvis CT 08/09/17 00:00 IMPRESSION: SURGICAL CHANGES. 3 CM RIGHT OVARIAN CYST. NO SIGNIFICANT OR ACUTE FINDING IN THE ABDOMEN OR PELVIS ON CT SCAN WITH IV CONTRAST. Chest/Abdomen CTA 08/09/17 00:00 IMPRESSION: 1. NORMAL CTA OF THE CHEST. NO PULMONARY EMBOLI. 2. PATCHY AIRSPACE DISEASE SCATTERED THROUGHOUT BOTH LUNGS, MOST LIKELY REPRESENTING MULTIFOCAL PNEUMONIA. Chest X-Ray 08/09/17 04:25 IMPRESSION: Multifocal pneumonia. Differential diagnosis includes CHF. 2010 [employer]- All Rights Reserved Status: Imported from PACS Assessment & Plan - Diagnosis (1) Urinary retention Is this a current diagnosis for this admission?: Yes Plan: Reviewed need for continued catheter for at least 7 days and would recommend discharge with leg bag/catheter with f/u in office with Urology for voiding trials. Will need abx prophy at discharge due to indwelling catheter. Continue with bladder antispasmodic (2) Pneumonia Qualifiers: Pneumonia type: due to unspecified organism Laterality: bilateral Lung location: lower lobe of lung Qualified Code(s): J18.9 - Pneumonia, unspecified organism Is this a current diagnosis for this admission?: Yes Plan: COntinue with IV abx. Blood cultures negative and patient afebrile since ER. per pt and staffing program manager IV infiltrated when given abx in ER and abx were not thought to be given yesterday. Abx currently infusing with new IV and pt tolerating well. If abefrile for 48 hours and improved may be able to discharge with po abx and f/u in office. End exp wheeze - cont respiratory therapy and cont with nebs and inhaler/spacer as needed. (3) Post-op pain Is this a current diagnosis for this admission?: Yes Plan: well controlled at this time. (4) Fever Qualifiers: Fever type: unspecified Qualified Code(s): R50.9 - Fever, unspecified Is this a current diagnosis for this admission?: Yes Plan: See above for pneumonia - Time Time Spent with patient: 25-34 minutes Medications reviewed and adjusted accordingly: Yes Anticipated discharge: Home Within: within 48 hours - Inpatient Certification Based on my medical assessment, after consideration of the patient's comorbidities, presenting symptoms, or acuity I expect that the services needed warrant INPATIENT care.: Yes I certify that my determination is in accordance with my understanding of Medicare's requirements for reasonable and necessary INPATIENT services [42 CFR 412.3e].: Yes Medical Necessity: Need Close Monitoring Due to Risk of Patient Decompensation, Need for Nebulizer Therapy and Monitoring of Response, Need for Pain Control, Need for IV Antibiotics Post Hospital Care: D/C Social And Political Studies Professor Documentation - Plan Summary Plan Summary: Discharge to home when afebrile.
[2017-08-11] MEDS: HYOSCYAMINE SULFATE 0.125 MG TABLET PO SCH ×4 (06:01→23:58)
[2017-08-11] MEDS: ALBUTEROL SULFATE HFA (90 MCG/PUFF) 200 PUFF/8.5 GM MDI IH PRN ×4 (07:47→21:17)
[2017-08-11] MEDS: HYDROMORPHONE HCL INJ/PF 2 MG/ML AMPULE INJ PRN ×3 (07:56→22:36)
[2017-08-11] MEDS: POLYETHYLENE GLYCOL 3350 POWDER 17 GM/1 PACKET PO SCH ×2 (09:18→17:05)
[2017-08-11] MEDS: DOCUSATE SODIUM 100 MG CAPSULE PO SCH ×2 (09:18→17:05)
[2017-08-11] MEDS: ERTAPENEM SODIUM 1 GM in NORMAL SALINE 50 ML IV SCH (09:18)
--- NOTE | 2017-08-11 11:11 | PDOC PROGRESS REPORT ---
Subjective Progress Note for:: 08/11/17 Subjective:: pt states she is in pain and needs the breathing treatment every 2 hours Reason For Visit: PNEUMONIA Physical Exam - Physical Exam Vital Signs: Temp Pulse Resp BP Pulse Ox 98.8 F 95 18 111/72 98 08/11/17 08:05 08/11/17 08:05 08/11/17 08:05 08/11/17 08:05 08/11/17 08:05 Intake & Output 08/10/17 08/11/17 08/12/17 06:59 06:59 06:59 Intake Total 1300 400 Output Total 3700 3750 Balance -2400 -3350 Weight 91.444 kg General appearance: PRESENT: no acute distress Respiratory exam: PRESENT: decreased breath sounds, wheezes GI/Abdominal exam: PRESENT: normal bowel sounds, soft Neurological exam: PRESENT: alert Psychiatric exam: PRESENT: appropriate affect Result Impressions: Abdomen/Pelvis CT 08/09/17 00:00 IMPRESSION: SURGICAL CHANGES. 3 CM RIGHT OVARIAN CYST. NO SIGNIFICANT OR ACUTE FINDING IN THE ABDOMEN OR PELVIS ON CT SCAN WITH IV CONTRAST. Chest/Abdomen CTA 08/09/17 00:00 IMPRESSION: 1. NORMAL CTA OF THE CHEST. NO PULMONARY EMBOLI. 2. PATCHY AIRSPACE DISEASE SCATTERED THROUGHOUT BOTH LUNGS, MOST LIKELY REPRESENTING MULTIFOCAL PNEUMONIA. Chest X-Ray 08/09/17 04:25 IMPRESSION: Multifocal pneumonia. Differential diagnosis includes CHF. 2010 [employer]- All Rights Reserved Assessment & Plan - Diagnosis (1) Pneumonia Qualifiers: Pneumonia type: due to unspecified organism Laterality: bilateral Lung location: lower lobe of lung Qualified Code(s): J18.9 - Pneumonia, unspecified organism Is this a current diagnosis for this admission?: Yes (2) Urinary retention Is this a current diagnosis for this admission?: Yes - Plan Summary Plan Summary: continue with present plan of management encourage ambulation
[2017-08-11] MEDS: RINGERS SOLUTION,LACTATED 1,000 ML IV PRN ×2 (11:28→22:36)
[2017-08-11] MEDS: DIAZEPAM 2 MG TABLET PO PRN ×2 (12:08→20:21)
--- NOTE | 2017-08-11 13:00 | Physician Advisory Note ---
Physician Advisor ProgressNote .: [facility] to [facility], I have reviewed the medical record for this patient. Physician Advisor Statement: Please consider documenting, if you agree: 1. "BLL pneumonia, suspect type" (gram positive? gram neg? ... - need most likely organism type documented , or pre coder will have to query attending for that info - Possible decision points: pt on Ertapenem, works in hospital) 2. "Acute exacerbation of ____ asthma" (see reference below for type) 3. Medical necessity: Please document today's specific concerns (such as "no longer febrile from pneumonia, but still needs IV abx because ", "asthma exacerbation seems to be worsening", or "worsening abd pain concerning for ", .... ) - With that, & already-documented increasing need for nebs, would be appropriate for change to Inpatient status. Status: Pt came in w/ur retention & PNA, associated with fever, tachypnea, tachycardia, hypotension, hypoxemia in the 80s at times. Also, at 9AM that first AM, nurse documented her breathing was labored, with non-productive cough , crackles, SOB at rest. On day 2, wheezing, crackles, prolonged expirations. Patient needing IV Dilaudid for pain 4x on 08/10. Pt needing prn albuterol in increasing frequency on 08/10 & 08/11, now feeling the need for it q2hrs. Has already been in hospital x 2 nights but asthma exacerbation appears to be worsening, as can easily happen when a pneumonia is present. (May need IV Solumedrol added, depending on attending impressions.) Dx of type of chronic asthma is based on worst category in which pt has at least 1 of following s/s present at baseline: A. Mild Intermittent: only needs albuterol occasionally. B. Mild Persistent: sx >2x/wk, nocturnal sx up to 4x/mo, FEV1 80+% predicted C. Mod Persistent: sx (or albuterol) daily, nocturnal sx >1x/wk, FEV1 60-80% predicted D. Severe Persistent: activities curtailed, frequent exacerbations, noct sx frequent, FEV1 <60% predicted. Thanks for all you do, & let her know I hope she feels much better soon! CK Addendum: spoke w/today's attending. He says she is still quite SOB & not moving much air, not able to safely be d/c'd home today, & will document his concerns. Appropriate to change to [facility] status today.
[2017-08-12] MEDS: ALBUTEROL SULFATE HFA (90 MCG/PUFF) 200 PUFF/8.5 GM MDI IH PRN ×2 (02:47→08:38)
[2017-08-12] MEDS: HYDROMORPHONE HCL INJ/PF 2 MG/ML AMPULE INJ PRN ×3 (02:54→10:15)
[2017-08-12] MEDS: HYOSCYAMINE SULFATE 0.125 MG TABLET PO SCH ×3 (05:24→17:08)
[2017-08-12] MEDS: DIAZEPAM 2 MG TABLET PO PRN (05:26)
[2017-08-12] MEDS: RINGERS SOLUTION,LACTATED 1,000 ML IV PRN (06:46)
[2017-08-12] MEDS: ERTAPENEM SODIUM 1 GM in NORMAL SALINE 50 ML IV SCH (09:27)
[2017-08-12] MEDS: DOCUSATE SODIUM 100 MG CAPSULE PO SCH ×2 (09:27→17:08)
[2017-08-12] MEDS: POLYETHYLENE GLYCOL 3350 POWDER 17 GM/1 PACKET PO SCH ×2 (09:28→17:08)
[2017-08-12] MEDS ORDERED: SUMATRIPTAN SUCCINATE 100 MG TABLET PO ONE (09:30)
--- NOTE | 2017-08-12 19:40 | PDOC DISCHARGE SUMMARY ---
General - Admit/Disc Date/PCP Admission Date/Primary Care Provider: 08/09/17 07:46 Discharge Date: 08/12/17 - Discharge Diagnosis (1) Pneumonia Is this a current diagnosis for this admission?: Yes (2) Urinary retention Is this a current diagnosis for this admission?: Yes - Additional Information Home Medications: Cyclobenzaprine HCl [Flexeril 10 mg Tablet] 10 mg PO TIDP PRN 08/09/17 Docusate Sodium [Colace 100 mg Capsule] 100 mg PO BID 08/09/17 Escitalopram Oxalate [Lexapro] 20 mg PO DAILY 08/09/17 Estrogens,Conjugated [Premarin Vaginal Cream (0.625 mg/gm) 30 gm] 2 gm VG QHS Eszopiclone [Lunesta] 3 mg PO HSP PRN 08/09/17 Ibuprofen [Motrin 800 mg Tablet] 800 mg PO Q8HP PRN 08/09/17 Oxycodone HCl/Acetaminophen [Percocet 5-325 mg Tablet] 1 tab PO Q6HP PRN Polyethylene Glycol 3350 [Miralax Powder 17 gm/Packet] 17 gm PO DAILY 08/09/17 Trazodone HCl [Desyrel 50 mg Tablet] 50 mg PO DAILYP PRN 08/09/17 History of Present Illness History of Present Illness: RAN CARRILLO is a 36 year old female The patient had a vaginal hysterectomy AMP repair and now presents to the ER with urinary retention and pneumonia. She was admitted for IV antibiotics biotics and a Brian catheter for bladder rest. Hospital Course Hospital Course: She was admitted and had a Brian catheter and was given antibiotics. She is doing better at this point and is ready to be discharged home. Physical Exam - Physical Exam Vital Signs: Temp Pulse Resp BP Pulse Ox 98.1 F 80 16 119/88 H 95 08/12/17 15:24 08/12/17 15:24 08/12/17 15:24 08/12/17 15:24 08/12/17 15:24 Intake & Output 08/11/17 08/12/17 08/13/17 06:59 06:59 06:59 Intake Total 400 1875 500 Output Total 3750 5600 2050 Balance -3350 -3725 -1550 General appearance: PRESENT: no acute distress, well-developed, well-nourished Head exam: PRESENT: atraumatic, normocephalic Extremities exam: PRESENT: full ROM. ABSENT: calf tenderness - Dr. Mejias also did a pelvic exam today., clubbing, pedal edema Result Impressions: Abdomen/Pelvis CT 08/09/17 00:00 IMPRESSION: SURGICAL CHANGES. 3 CM RIGHT OVARIAN CYST. NO SIGNIFICANT OR ACUTE FINDING IN THE ABDOMEN OR PELVIS ON CT SCAN WITH IV CONTRAST. Chest/Abdomen CTA 08/09/17 00:00 IMPRESSION: 1. NORMAL CTA OF THE CHEST. NO PULMONARY EMBOLI. 2. PATCHY AIRSPACE DISEASE SCATTERED THROUGHOUT BOTH LUNGS, MOST LIKELY REPRESENTING MULTIFOCAL PNEUMONIA. Chest X-Ray 08/09/17 04:25 IMPRESSION: Multifocal pneumonia. Differential diagnosis includes CHF. 2010 [employer]- All Rights Reserved Plan Discharge Plan: Home with follow-up next week. Medications include her home medications and clindamycin. Time Spent: Greater than 30 Minutes
[2017-08-12 20:43] VITALS: BP 117/92
== END 2017-08-12 20:15 | disposition home or self-care (01) | DRG 205 ==
LOC: ER 04:21 → EH 07:46 → INTOOBSV 07:46 → 2S 08:49 → OBSVTOIN 08-11 08:00
PROVIDERS: ADMIT Obstetrics & Gynecology; ATTEND Obstetrics & Gynecology
PROC: 3E0F73Z Introduction of Anti-inflammatory into Respiratory Tract, Via Natural or Artificial Opening (ICD-10-PCS; principal; 2017-08-10)
DX: J95.89 Other postprocedural complications and disorders of respiratory system, not elsewhere classified (principal); J18.9 Pneumonia, unspecified organism; Y83.6 Removal of other organ (partial) (total) as the cause of abnormal reaction of the patient, or of later complication, without mention of misadventure at the time of the procedure; N99.89 Other postprocedural complications and disorders of genitourinary system; R33.8 Other retention of urine; G89.18 Other acute postprocedural pain; N83.209 Unspecified ovarian cyst, unspecified side; J45.909 Unspecified asthma, uncomplicated; F32.9 Major depressive disorder, single episode, unspecified; E87.6 Hypokalemia; Z90.710 Acquired absence of both cervix and uterus; Z88.8 Allergy status to other drugs, medicaments and biological substances; Z79.899 Other long term (current) drug therapy
CPT/HCPCS: 36415; 51702; 71010; 71275; 74177; 80053; 81001; 83735; 85025; 85610; 85730; 86850; 86900; 86901; 87040; 87804; 94640; 94799; 96361; 96374; 96375; 99285; J1170; J1335; J1885; J3010; J3490; J7030; J7120